=== PATIENT | female | born 1950 | race Caucasian/White ===

== ENCOUNTER → 2017-11-25 10:27 | Outpatient (CLI) | payer MEDICARE, SELFPAY ==
[2017-11-25 12:40] LABS: AST(SGOT) 19 U/L (15-37); Alanine Aminotransfer ALT/SGPT 25 U/L (13-56); Anion Gap 8 (5-15); BUN 14 mg/dL (7-18); BUN/Creat Ratio 20.9 RATIO (10-20); Chloride 107 mmol/L (98-107); Cholesterol 215 mg/dL (200); Creatinine, Serum 0.67 mg/dL (0.55-1.02); EST Glomerular Filtration Rate 93 mL/min (>60); Est Glom Filt Rate - Afr Amer 113 mL/min (>60); Glucose 76 mg/dL (74-106); High Density Lipoprotein 59 mg/dL; Potassium 3.3 mmol/L (3.5-5.1); Sodium Level 144 mmol/L (136-145); Thyroid Stim Hormone (TSH) 2.03 uIU/mL (0.358-3.74); Triglycerides 128 mg/dL; Very Low Density Lipoprotein 26 mg/dL (5-40)
== END ==
PROVIDERS: Family Provider Family Medicine; PCP Family Medicine; Visit Provider Family Medicine
DX: Z00.00 Encounter for general adult medical examination without abnormal findings (principal); E78.5 Hyperlipidemia, unspecified; M81.0 Age-related osteoporosis without current pathological fracture
CPT/HCPCS: 36415; 80048; 80061; 84443; 84450; 84460

== ENCOUNTER → 2018-01-29 08:37 | Outpatient (CLI) | payer MEDICARE, SELFPAY ==
--- NOTE | 2018-01-29 08:39 | BD_ITS ---
STUDY: DUAL ENERGY X-RAY ABSORPTIOMETRY / DXA REASON FOR EXAM: Female, 67 years old. The patient is postmenopausal. No loss of height. TECHNIQUE: Bone Mineral Density (BMD) measurements of lumbar spine and bilateral hips were obtained. COMPARISON: Comparison is made with prior study dated October 18, 2015. FINDINGS: Lumbar Spine (L1-L4): g/cm2 (0.864) / T-score (-2.6) / Z-score (-1.0) Findings are suggestive of osteoporosis with a high fracture risk. Left Femur Total: g/cm2 (0.812) / T-score (-1.6) / Z-score (-0.2) Left Femoral Neck: g/cm2 (0.724) / T-score (-2.3) / Z-score (-0.7) Right Femur Total: g/cm2 (0.726) / T-score (-2.2) / Z-score (-0.9) Right Femoral Neck: g/cm2 (0.690) / T-score (-2.5) / Z-score (-0.9) The T-Scores on the most recent prior examination were: Lumbar Spine (L1-L4): There has been no change of bone density since the previous examination. Left Femur Total: which represents an improvement of 3.7%. Right Femur Total: which represents a worsening of 0.7%. BD/Dexa Bone Density Study IMPRESSION: The patient is considered osteoporotic as outlined below according to World Tl Organization (WHO) criteria with a high fracture risk. There has been improvement of bone density since the previous examination. Reference Information: The T-score is the number of standard deviations above or below the standard which is normal for young adults at their peak bone mineral density. The World Health Organization (WHO) interprets the T-scores as follows: Above -1 Normal bone density Between -1 and -2.5 Osteopenia Equal to / or below -2.5 Osteoporosis As a practical clinical guideline, osteopenia may be graded as follows: Mild -1 through -1.5 Moderate -1.6 through -2.0 Severe -2.1 through -2.4 The Z-score is the number of standard deviations above or below age-matched controls. A Z-score of less than -1.5 would be considered abnormal. References: 1. NIH Osteoporosis and Related Bone Diseases http://www.osteo.org 2. International Society for Clinical Densitometry http://www.iscd.org 3. National Osteoporosis Foundation http://www.nof.org Electronically Signed: Rangel Carver MD at 13:06 EDT Tel [phone], Service support ,
--- NOTE | 2018-01-29 08:41 | BI_ITS ---
MAMMOGRAPHY - BILATERAL SCREENING REASON FOR EXAM: Female, 67 years old. Routine annual screening examination. PERTINENT HISTORY: Non-contributory. TECHNIQUE: Digital bilateral breast emelyn (3D mammographic acquisition) in the CC and MLO projections. 2-D mediolateral oblique (MLO) and craniocaudad (CC) views of both breasts were obtained. CAD: Full Field Digital Mammography with Computer Added Detection was performed. COMPARISON: Comparison is made with prior study dated December 14, 2016 and October 18, 2015. FINDINGS: Breast Composition: There are scattered areas of fibroglandular density. There are no dominant masses or suspicious calcifications. No other significant abnormalities are identified. There has been no significant change since the prior study. BI/SCREENING MAMM (CAD), BILAT IMPRESSION: Stable bilateral screening mammogram. Yearly follow-up mammogram recommended. (A) ASSESSMENT CATEGORY: BIRADS Category 1: Negative. A letter regarding these results will be sent to the patient by the facility within 30 days. Approximately 10% of breast cancers are not detected by mammography. A normal mammogram should not delay biopsy of a clinically suspicious abnormality. [id number] Electronically Signed: Rangel Carver MD at 9:54 EDT Tel [phone], Service support ,
== END ==
PROVIDERS: Family Provider Family Medicine; PCP Family Medicine; Visit Provider Family Medicine
DX: M81.0 Age-related osteoporosis without current pathological fracture (principal); Z12.31 Encounter for screening mammogram for malignant neoplasm of breast
CPT/HCPCS: 77063; 77067; 77080

== ENCOUNTER → 2020-07-04 08:36 | Outpatient (CLI) | payer MEDICARE, SELFPAY ==
[2020-07-04 10:03] LABS: Absolute Lymphocyte Count 1.87 X10^3/uL (0.83-4.51); Absolute Neutrophil Count 3.6 X10^3/uL (2.0-7.7); Basophil# 0.02 X10^3/uL; Basophil% 0.3 % (0-1); Eosinophil# 0.38 X10^3/uL; Hematocrit 42.8 % (37-47); Hemoglobin 14.2 g/dL (12.0-15.0); Lymphocyte # 1.87 X10^3/ul (4.0); Lymphocyte % 29.3 % (19-41); Mean Corp Hgb Conc 33.2 g/dL (32-36); Mean Corpuscular Hgb 31.1 pg (27.0-32.0); Mean Corpuscular Volume 93.7 fL (81-99); Monocyte# 0.45 X10^3/uL; Monocyte% 7.1 % (0-10); NRBC Flagged by Analyzer 0 % (0-5); Neutrophil # 3.64 X10^3/uL (2.7-7.7); Platelet Count 224 K/mm3 (150-450); RBC Distribution Width CV 12.9 % (11.6-14.6); RBC Distribution Width SD 44.2 fl (35.1-43.9); Red Blood Count 4.57 M/mm3 (4.2-5.4); White Blood Count 6.4 K/mm3 (4.4-11.0)
[2020-07-04 10:36] LABS: Anion Gap 5 (5-15); BUN 13 mg/dL (7-18); BUN/Creat Ratio 16.9 RATIO (10-20); Calcium,Total 8.6 mg/dL (8.5-10.1); Chloride 112 mmol/L (98-107); Cholesterol 201 mg/dL (200); Creatinine, Serum 0.77 mg/dL (0.55-1.02); EST Glomerular Filtration Rate 79 mL/min (>60); Est Glom Filt Rate - Afr Amer 96 mL/min (>60); Glucose 91 mg/dL (74-106); High Density Lipoprotein 55 mg/dL; Potassium 3.5 mmol/L (3.5-5.1); Sodium Level 144 mmol/L (136-145); Triglycerides 105 mg/dL; Very Low Density Lipoprotein 21 mg/dL (5-40)
== END ==
PROVIDERS: PCP Family Medicine; Referring Provider Family Medicine; Visit Provider Registered Nurse
DX: R20.0 Anesthesia of skin (principal); E78.5 Hyperlipidemia, unspecified; R20.2 Paresthesia of skin
CPT/HCPCS: 36415; 80048; 80061; 85025

== ENCOUNTER → 2020-07-14 13:19 | Outpatient (CLI) | payer MEDICARE, OTHER, SELFPAY ==
--- NOTE | 2020-07-14 13:29 | CT_ITS ---
STUDY: CT BRAIN WITHOUT CONTRAST REASON FOR EXAM: Female, 69 years old. LEFT SIDE NUMBNESS/TINGLING RADIATION DOSAGE (If Supplied By Facility): CTDIvol = ( 60.81 ) mGy, DLP = ( 1067.08 ) mGycm TECHNIQUE: Transaxial CT imaging of the brain was performed without administration of intravenous contrast material. Individualized dose optimization techniques were used for this CT. COMPARISON: No relevant priors. FINDINGS: Normal soft tissue structures. Normal calvarium. There is mild cerebral atrophy with widening of the extra-axial spaces and ventricular dilatation. Normal white matter tracts of the cerebral hemispheres. Normal basal ganglia and thalami. Normal brainstem. Normal cerebellum. There is no intracranial hemorrhage. There are no findings of an acute ischemic infarction. Normal visualized paranasal sinuses. CT/Brain/Head without Contrast IMPRESSION: Chronic involutional changes of the brain. Electronically Signed: Rangel Carver, at 14:19 EDT , Service support ,
== END ==
PROVIDERS: PCP Family Medicine; Referring Provider Registered Nurse; Visit Provider Registered Nurse
DX: R20.0 Anesthesia of skin (principal); R20.2 Paresthesia of skin
CPT/HCPCS: 70450

== ENCOUNTER → 2020-07-26 16:06 | Outpatient (CLI) | payer MEDICARE, OTHER, SELFPAY ==
--- NOTE | 2020-07-26 16:45 | MRI_ITS ---
STUDY: MRI BRAIN WITH AND WITHOUT CONTRAST REASON FOR EXAM: Female, 69 years old. numbness and tingling TECHNIQUE: Standardized multiplanar fat and water weighted pulse sequences were obtained. IV Yes YES was administered for the contrast portion of the examination. COMPARISON: CT of the brain 07/14/2020 FINDINGS: Mild atrophy and moderate periventricular white matter ischemic changes without mass effect or restricted diffusion.. Normal bilateral basal ganglia. Normal thalami. There is no extra-axial fluid accumulation. Normal flow voids within the major intracranial circulation suggesting patency by spin echo criteria. Normal venous enhancement. There is no enhancing intra-axial or extra-axial abnormality. Normal sella turcica, pituitary gland, infundibular stalk, optic chiasm and hypothalamus. Normal tectal plate and pineal gland. Normal midbrain, sunshine and medulla. Normal cerebellum. Normal basal cisterns. Normal bilateral temporal bones. Normal bilateral internal auditory canals. There are postsurgical changes of the orbits.. Normal visualized paranasal sinuses. Normal calvarium and skull base. Normal visualized soft tissue structures. Normal visualized upper cervical spine. MRI/Brain W/WO Contrast IMPRESSION: Moderate periventricular white matter ischemic changes without evidence for acute infarct.. No enhancing lesions following contrast administration Electronically Signed: Jareth Parrish MD at 17:23 EDT , Service support ,
== END ==
PROVIDERS: PCP Family Medicine; Referring Provider Nurse Practitioner Family; Visit Provider Nurse Practitioner Family
DX: R20.0 Anesthesia of skin (principal); R20.2 Paresthesia of skin
CPT/HCPCS: 70553; A9575

== ENCOUNTER 2021-02-02 16:53 | Day surgery (SDC) | payer MEDICARE, OTHER, SELFPAY ==
[2021-02-02 16:54] VITALS: BP 170/100; PULSE 85; RESP 18; TEMP 36.1; O2SAT 100; BMI 23.4
[2021-02-02] MEDS: Morphine 4 MG/ML Syringe IV ×2 (17:26→19:20)
[2021-02-02 17:29] LABS: Absolute Lymphocyte Count 2.39 X10^3/uL (0.83-4.51); Absolute Neutrophil Count 3.3 X10^3/uL (2.0-7.7); Basophil# 0.02 X10^3/uL; Basophil% 0.3 % (0-1); Eosinophil# 0.23 X10^3/uL; Eosinophils% 3.6 % (0-5); Hematocrit 43.5 % (37-47); Hemoglobin 14.2 g/dL (12.0-15.0); Lymphocyte # 2.39 X10^3/ul (0.83-4.51); Lymphocyte % 37.5 % (19-41); Mean Corp Hgb Conc 32.6 g/dL (32-36); Mean Corpuscular Hgb 30.2 pg (27.0-32.0); Mean Corpuscular Volume 92.6 fL (81-99); Mean Platelet Vol. 10.9 fl (6.2-12.0); Monocyte# 0.44 X10^3/uL; Monocyte% 6.9 % (0-10); NRBC Flagged by Analyzer 0 % (0-5); Neutrophil # 3.28 X10^3/uL (2.7-7.7); Neutrophil % 51.5 % (47-70); Platelet Count 241 K/mm3 (150-450); RBC Distribution Width SD 44.1 fl (35.1-43.9); White Blood Count 6.4 K/mm3 (4.4-11.0)
[2021-02-02] MEDS: Diphth,Pertuss(Acell),Tet Vac 0.5 ML Vial IM (17:29)
--- NOTE | 2021-02-02 17:31 | RAD_ITS ---
STUDY: X-RAY - LEFT WRIST REASON FOR EXAM: Female, 70 years old. Injury/Pain TECHNIQUE: 3 view(s) of the wrist were obtained. COMPARISON: None. FINDINGS: An acute comminuted impacted fracture of the distal radial metaphysis is present with displacement and foreshortening. An acute fracture at the base of the ulnar styloid is also present. The soft tissues are mildly swollen. A laceration is seen at the periphery of the ulnar styloid. Normal radiocarpal articulation. Normal distal radioulnar articulation. Normal carpal bones. Normal carpal articulations. Normal carpometacarpal articulation of the thumb. Normal second through fifth carpometacarpal articulations. Normal visualized metacarpal bones. RAD/Wrist min 3 Views IMPRESSION: 1. An acute comminuted impacted fracture of the distal radial metaphysis is present with displacement and foreshortening. 2. An acute fracture at the base of the ulnar styloid is also present. The soft tissues are mildly swollen. A laceration is seen at the periphery of the ulnar styloid. Electronically Signed: Selwyn Lara MD at 18:44 EDT , Service support ,
[2021-02-02 17:40] LABS: Prothrombin Time (Protime)PT. 12.8 SECONDS (11.7-14.9)
[2021-02-02 17:41] LABS: Partial Thromboplast Time 24.1 Seconds (24.1-36.2)
[2021-02-02 17:50] LABS: AST(SGOT) 18 U/L (15-37); Alanine Aminotransfer ALT/SGPT 24 U/L (13-56); Albumin, Serum 3.7 g/dL (3.2-5.0); Alkaline Phosphatase 114 U/L (45-117); Anion Gap 5 (5-15); BUN 15 mg/dL (7-18); Calcium,Total 8.9 mg/dL (8.5-10.1); Chloride 108 mmol/L (98-107); Creatinine, Serum 0.88 mg/dL (0.55-1.02); EST Glomerular Filtration Rate 67 mL/min (>60); Est Glom Filt Rate - Afr Amer 81 mL/min (>60); Estimated Creatinine Clearance 57.85 ml/min; Globulin 3.8 g/dL (2.2-4.2); Glucose 106 mg/dL (74-106); Potassium 3.2 mmol/L (3.5-5.1); Protein, Total 7.5 g/dL (6.4-8.2); Sodium Level 142 mmol/L (136-145)
[2021-02-02] MEDS: Cefazolin 1 GM/50 ML BAG IV (18:04)
[2021-02-02 20:14] VITALS: BP 164/81; PULSE 72; RESP 16; O2SAT 98
[2021-02-02 20:15] VITALS: BP 169/71; PULSE 72; RESP 16; TEMP 36.7; O2SAT 98; BMI 23.4
[2021-02-02 20:20] VITALS: BP 164/71; PULSE 72; RESP 16; TEMP 36.7; O2SAT 98
--- NOTE | 2021-02-02 21:01 | PCM.HP.STD ---
History of Present Illness Date of Admission: 02/02/21 Chief Complaint: left wirst pain The patient is a 70 year old F [id number] female with a history of osteoporosis presents today with left wrist pain. She tripped on the sidewalk and fell on the concrete this afternoon sustained an injury to her wrist with a noted deformity. She presented to the emergency department. She was noted to have a small wound over the distal ulna dorsally. She denies any numbness and tingling. Pain is a 6 out of 10 worse with motion better with immobilization. Is a dull achy pain. She denies any associated numbness and tingling. She lives at home with her . She continues to maintain all of her ADLs. She plays the piano. Past Medical History Medical History: Medical History (Last Updated 02/02/21 @ 21:[address] Raúl Robertson MD) Hypercholesteremia E78.00 Osteoporosis M81.0 Allergies No Known Allergies Allergy (Verified 02/02/21 16:55) Home Medications: Ambulatory Orders Medication Instructions Recorded Ergocalciferol (Vitamin D2) 1 cap PO DAILY 02/02/21 [Vitamin D2] Pravastatin Sodium 40 mg PO DAILY 02/02/21 Surgical History: - - Denies adverse events with anesthesia Psychiatric History: No pertinent psych hx COMMUNITY CENTER DIRECTOR History: No pertinent COMMUNITY CENTER DIRECTOR history Lives: Spouse/ Significant Other Smoking Status: Never smoker Tobacco Use: Non-smoker Alcohol: None Drugs: None Review of Systems Constitutional: Denies: Chills, Fever, Weight Change HEENT: Denies: Head Aches, Sinus Congestion, Sinus Drainage Cardiovascular: Denies: Chest Pain, Palpitations Respiratory: Denies: Cough, Shortness of breath at rest, Sputum production Gastrointestinal: Denies: Abdominal Pain, Nausea, Vomiting Genitourinary: Denies: Dysuria Musculoskeletal: Reports: Joint Pain, Joint Tenderness Skin: Reports: Wounds - Left forearm. Denies: Rash Neurological: Denies: Numbness, Tingling, Focal weakness Psychiatric: Denies: Anxiety, Depression, Homicidal Ideations, Suicidal Ideations Hematologic/ Lymphatic: Denies: Easy Bruising, Easy Bleeding VTE Information - Inpt Only VTE Present on Admission: No VTE Mechan Device Prophylaxis: SCD's VTE Pharm Prophylaxis ordered?: No Reason prophylaxis not ordered:: Treatment Not Indicated Objective: X-rays of the left wrist reveal a comminuted intra-articular distal radius fracture with greater than 2 fragments. There appears to be a sagittal and coronal split distally. In addition there is a radial styloid fracture. - Physical Exam Vitals/I&O's: Vital Signs Temp Pulse Resp BP Pulse Ox 98.1 F 72 16 164/71 H 98 02/02/21 20:20 02/02/21 20:20 02/02/21 20:20 02/02/21 20:20 02/02/21 20:20 Oxygen Delivery Method Room Air Weight: 149 lb 14.629 oz Body Mass Index (BMI) 23.4 Intake and Output for Last 24 Hours 01/31/21 02/01/21 02/02/21 23:59 23:59 23:59 Intake Total 50 / 50 Balance 50 / 50 General: Alert, Oriented x3, Cooperative HEENT: Atraumatic, PERRLA Oral: Moist Mucosa Neck: No JVD Lungs: - - Nonlabored breathing Cardiovascular: - - Regular pulse rate Abdomen: Non-Distended Extremities: - - Left upper extremity: Patient has ecchymosis and gross deformity of the wrist. There is a small puncture hole roughly 3 mm in diameter over the dorsal distal ulna. Skin is otherwise intact. Tenderness palpation in this area. Positive thumbs up, okay sign and cross his fingers. SILT R/M/U. 2+ rp Laboratory Results 02/02/21 17:20: WBC 6.4, RBC 4.70, Hgb 14.2, Hct 43.5, MCV 92.6, MCH 30.2, MCHC 32.6, RDW Std Deviation 44.1 H, RDW Coeff of Kian 13.0, Plt Count 241, MPV 10.9, Immature Gran % (Auto) 0.200, Neut % (Auto) 51.5, Lymph % (Auto) 37.5, Slope % (Auto) 6.9, Eos % (Auto) 3.6, Baso % (Auto) 0.3, Absolute Neuts (auto) 3.3, Absolute Lymphs (auto) 2.39, Nucleated RBC % 0 02/02/21 17:20: Sodium 142, Potassium 3.2 L, Chloride 108 H, Carbon Dioxide 29.0, Anion Gap 5, BUN 15, Creatinine 0.88, Estim Creat Clear Calc 57.85, Est GFR (MDRD) Af Amer 81, Est GFR (MDRD) Non-Af 67, BUN/Creatinine Ratio 17.0, Glucose 106, Calcium 8.9, Total Bilirubin 0.20, AST 18, ALT 24, Alkaline Phosphatase 114, Total Protein 7.5, Albumin 3.7, Globulin 3.8, Albumin/Globulin Ratio 1.0 02/02/21 17:20: PT 12.8, INR 1.0, APTT 24.1 Assessment/Plan Grade 1 left open distal radius fracture with associated ulnar styloid fracture. Natural history of the disease process and treatment options were discussed the patient. At this time I explained to the patient and due to the open nature of the fracture her overall health and activity level I would recommend irrigation debridement of the wound for treatment of the open fracture with stabilization of the fracture. Plan is for open reduction internal fixation with plate and screw fixation. This was described to the patient in detail. As well as recovery. Risk and benefits of the procedure were discussed the patient including but not limited to blood loss, DVTs, PEs, nervous damage, infection, the risk of anesthesia. The emergency department is given her Ancef upon presentation. We will redose her Ancef prior to surgery. Her tetanus is reported as up-to-date. We will keep the patient n.p.o., She did get 2 glasses of water in the emergency department. Considering the open nature of the fracture we have elected to proceed an emergent manner with the surgery this evening. [facility] Office:
[2021-02-02] MEDS: Ondansetron 4 MG/2 ML Vial IV (21:39)
--- NOTE | 2021-02-02 21:43 | EKG12_ITS ---
Test Reason : PRE-OP Blood Pressure : / mmHG Vent. Rate : 073 BPM Atrial Rate : 073 BPM P-R Int : 156 ms QRS Dur : 100 ms QT Int : 422 ms P-R-T Axes : 041 019 066 degrees QTc Int : 464 ms Sinus rhythm with occasional Premature ventricular complexes Nonspecific ST abnormality Abnormal ECG Confirmed by FERDINAND MARTINEZ, ANASTASIA ([id number]), subeditor YUNIEL NOONAN ([id number]) on 02/06/2021 9:03:13 AM Referred By: DR KATZ Confirmed By:ANASTASIA STREETER MD
[2021-02-02] MEDS: Cefazolin 2 GM in 0.9% Normal Saline 100 ML IV (22:25)
--- NOTE | 2021-02-02 22:30 | RAD_ITS ---
STUDY: X-RAY - LEFT WRIST REASON FOR EXAM: ORIF distal radial fracture. TECHNIQUE: 7 intraoperative images of the wrist were obtained. COMPARISON: Radiographs 02/02/2021. FINDINGS: There is an orthopedic plate and screws transfixing a distal radial fracture in anatomical alignment and position. 52.9 seconds of fluoroscopy time was used. Electronically Signed: Rudy Dickens MD at 14:20 EDT Tel , Service support , RAD/Wrist 2 Views
[2021-02-02] MEDS: Lactated Ringers 1,000 ML 125 ML IV (23:00)
--- NOTE | 2021-02-02 23:45 | DCINST_ITS ---
Discharge Diet: No Restrictions Discharge Activity: May Not Drive May shower in (days): 1 - keep splint dry May resume sexual activity in: No Restrictions Ice area for (Minutes): 20 - Ice area for 20 minutes each hour while awake Weight Bearing Status: Weight bearing as tolerated Keep extremity elevated above heart level: Operative Extremity Call your doctor if your incision/area has: Continuous Slow Oozing, Sudden Increased Bleeding, Increased Pain/ Swelling, Increased Redness, Foul Smelling Discharge Call your doctor if you observe: Fever of 101 or Higher, Coldness, Increased Pain, Numbness or Tingling, Change in Color Remove Dressing in (days):: 14 - Will be done in office Cleanse incision/area with: Keep Dressing Clean & Dry Allergies/Adverse Reactions: Allergies No Known Allergies Allergy (Verified 02/02/21 16:55) Medications to take at Discharge Acetaminophen [Tylenol] 1,000 mg PO Q8 tablet 02/02/21 Cephalexin [Keflex] 500 mg PO Q12 #14 capsule 02/02/21 Ergocalciferol (Vitamin D2) [Vitamin D2] 1 cap PO DAILY 02/02/21 Pravastatin Sodium 40 mg PO DAILY 02/02/21 traMADol [Ultram] 50 mg PO Q6H PRN PRN 5 Days #30 tablet 02/02/21 The following prescriptions were given: Cephalexin [Keflex] 500 mg PO Q12 #14 capsule traMADol [Ultram] 50 mg PO Q6H PRN PRN 5 Days #30 tablet PRN Reason: Pain Score 4-10 Primary Care Physician: Carmelita Anand MD [Primary Care Provider] - Test Results: Test results from this visit will be discussed in further detail at your follow- up appointment, if applicable. Please Follow Up With: Raúl Robertson MD - In 2 weeks When: Call for appointment Proposed Discharge Date: 02/02/21
--- NOTE | 2021-02-02 23:57 | PCM.OPRPT ---
Report of Operation Date of Procedure: 02/02/21 Pre-Operative Diagnosis: Left comminuted distal radius intra-articular fracture with greater than 2 fragments. Left ulnar styloid fracture open grade 1 Post-Operative Diagnosis: Left comminuted distal radius intra-articular fracture with greater than 2 fragments. Left ulnar styloid fracture open grade 1 Surgery/Procedure Performed:: Irrigation debridement with open reduction internal fixation left ulnar styloid fracture. Open reduction internal fixation left comminuted intra-articular distal radius fracture with greater than 2 fragments Description of Surgical Findings:: Stable reduction. Bone graft was required secondary to limited bone stock news library director: Jessica Muller Type of Anesthesia:: General/Regional Anesthesiologist: Rashard Anne Special Medications: 2 g Ancef Estimated Blood Loss (mL): 5 Fluids Replaced: 1500 mL crystalloid Description of Procedure: On the date of the procedure patient was examined in the emergency department. She was marked and consented for surgery as noted in her H&P. She was brought down to the operating room where she was taken back to the operating suite and transferred to the table in the supine position. Anesthesia assumed control of the C-spine airway. They remained controlled throughout the remainder of the procedure. Anesthesia was administered. All bony prominences were identified well-padded. Tourniquet was placed on left upper arm. Left upper extremity was then prepped in a sterile fashion while surgeon scrubbed. Upon reentering the room the left upper extremity was draped in a sterile fashion. Timeout was called over and agreed upon the side, site, treated performed, patient's identity and antibiotics given. At this point the incision was marked out to ellipse the open area over the distal ulna. In a standard volar approach incision was marked out over the volar wrist. Esmarch bandage was used to exsanguinate the extremity and tourniquet was placed up to 250 mmHg. Attention was initially directed towards the open wound where we ellipsed out the small opening and the damage surrounding skin. We debrided skin subtenons tissue fat and fascia. Once we are down to the fracture site it was clear that it was more of an inside out injury. Minimal gross debris was appreciated. The fracture site was copiously aired out normal saline and all debris was removed. We used over 1 L of normal saline. Once this was done we then directed our attention to fixation of the ulnar styloid. A 2-0 Ethibond suture was selected. We drilled a small hole in the styloid and a small hole in the shaft and made a tension band type fixation. We were able to visualize good fixation and reduction of the fracture. Live x-ray was used to verify fracture reduction. Once were happy with this was tied down in a tight knot and remained stable. The wound was copiously irrigated out with normal saline and skin was closed with 2-0 Vicryl and final skin closure was done with 3-0 nylon. Once this was done attention was directed towards the volar wrist Incision was made through skin we dissected sharply through superficial fascia then through the deep fascia retracting the FCR ulnarly. Once this was done FPL was also retracted ulnarly and the pronator quadratus was released from the radial aspect of the radius. We were able to identify the fracture. Patient had poor quality bone. We did open up bone graft. The fracture was reduced using traction and reduction maneuver. A K wire was then placed once we are happy with the fracture reduction to help hold it in place. Live x-ray was used to verify fracture reduction. It was clear that there was comminution and poor bone quality and the radial styloid. Bone graft was packed in this area. Once this was done we placed the plate provisionally with a K wire distally and in the slotted hole we placed the screw proximally. We tightened the plate down live x-rays used to verify plate placement and fracture reduction. Once we are happy with this we then used a leg screw distally to help bring the dorsal bone fragment into better reduction. We reduced the fracture and tightened down the leg screw. Once this was done we again verified fracture reduction. Once we are happy with this, has not dissipated the leg screw was long. We left the stent as we placed lockers in the remaining of the distal screws as well as the proximal screws. Once all the lockers were placed the leg screw was removed and replaced with a locking screw. The posterior fracture fragment remained stable. Final x-rays were taken showing stable reduction plate placement. Wounds Klebsiella normal saline. Skin closure was done with 2-0 Vicryl and 3-0 nylon. Xeroform dressing was placed. Compressive dose was placed. Tourniquet was let down. Volar splint was placed. Patient was awakened by anesthesia and transferred the PACU for recovery. Postop plan: Patient will be discharged home from the PACU. I have written for 1 week of Keflex to be taken due to the open fracture. Patient is nonweightbearing for a total of 6 weeks. We should be able to remove the splint in 2 weeks and begin range of motion exercises. Grafts/Implants Used: Synthes 3-hole narrow distal radius locking plate - Complications No intraoperative complications - Admit VTE Documentation VTE Present on Admission: No VTE Mechan Device Prophylaxis: SCD's VTE Pharm Prophylaxis ordered?: No Reason prophylaxis not ordered:: Treatment Not Indicated
[2021-02-03 00:02] VITALS: BP 103/55; BP 164/71; PULSE 84; RESP 16; TEMP 35.8; O2SAT 95
[2021-02-03 00:15] VITALS: BP 164/71; BP 94/64; PULSE 80; RESP 16; O2SAT 94
[2021-02-03 00:30] VITALS: BP 123/84; BP 164/71; PULSE 80; RESP 16; O2SAT 97
--- NOTE | 2021-02-03 00:37 | ED.VISSUMM ---
- ER Visit Summary Date of Service: 02/03/21 Chief Complaint: Left wrist injury History of Present Illness: The patient is a 70 F who presents with left wrist injury that occurred today. Patient states she was walking on the sidewalk when she tripped and fell. Patient states she fell forward on her outstretched left wrist. Patient describes her pain as throbbing. Patient states the pain is worse with any movement. Patient denies any head injury or loss of consciousness. Patient states she also thinks she scraped her left knee but he has had no pain in her knee. Patient denies any other injuries. Physical Examination: Vital signs are stable except for elevated blood pressure of 170/100. Patient is afebrile. Patient is in no acute distress. Oral mucosa is pink and moist. Neck is supple. Trachea is midline. There is no JVD. Musculoskeletal exam reveals tenderness over the left wrist. There is edema and ecchymosis. There is deformity noted. There is also an open puncture wound on the ulnar aspect of the left wrist. There is mild bleeding. Range of motion was limited in all motions of the left wrist secondary to pain. Sensation was intact to light touch in the radial, median, and ulnar areas. Strength is 5/5 in the radial, median, and ulnar areas. There is a strong radial pulse noted. Test Results: X-rays of the left wrist were obtained. There are 3 views. On my interpretation, there is a comminuted distal radius fracture extending into the radiocarpal joint and radial ulnar joint. There is shortening and impaction of the distal fragment. There is also an ulnar styloid fracture. Radiologist also interpreted the x-rays and agrees. CBC and comprehensive metabolic profile were obtained and were essentially within normal limits. Emergency Department Course and Treatment: Patient was given a tetanus booster and Ancef. Patient was given morphine and Zofran. Patient was given a repeat dose of morphine. Case was discussed with Dr. Robertson from orthopedics. He was in to evaluate the patient. He will admit the patient and take the patient to the operating room tonight. Patient understood and was agreeable with the plan. All questions were answered. Disposition: Admit to operating room Impression: Open fracture left distal radius and ulna This note was generated with [employer] dictation software. It may contain incorrect words, spelling, and punctuation that were not noted in review of the chart prior to signing ED Disposition - Plan for ED Patient: Disposition: Acute Care [facility] Diagnosis: Open fracture of left distal radius and ulna
[2021-02-03 00:45] VITALS: BP 123/87; BP 164/71; PULSE 84; RESP 16; TEMP 36.2; O2SAT 100
== END 2021-02-03 01:22 | disposition home or self-care (01) ==
LOC: ED 18:29 → SDC 20:14 → AC 20:15
PROVIDERS: Emergency Provider Emergency Medicine; PCP Family Medicine; Visit Provider Specialist
PROC: (CPT 25609; principal; 2021-02-02 20:00)
DX: S52.572A Other intraarticular fracture of lower end of left radius, initial encounter for closed fracture (principal); S52.612B Displaced fracture of left ulna styloid process, initial encounter for open fracture type I or II; W01.0XXA Fall on same level from slipping, tripping and stumbling without subsequent striking against object, initial encounter; Y93.01 Activity, walking, marching and hiking; Y92.480 Sidewalk as the place of occurrence of the external cause; Z23 Encounter for immunization; M81.0 Age-related osteoporosis without current pathological fracture; E78.00 Pure hypercholesterolemia, unspecified; Z79.899 Other long term (current) drug therapy
CPT/HCPCS: 25609; 25652; 64450; 73100; 73110; 76000; 80053; 85025; 85610; 85730; 90715; 93005; 99284; C1713; J7050; J7120; A4216; J2405

== ENCOUNTER 2021-04-27 08:00 | Outpatient (RCR) | payer MEDICARE, SELFPAY ==
--- NOTE | 2021-03-27 16:07 | HP.OTEVAL_ITS ---
Patient's Visit Information NAYELI MCMILLAN is a 70 year old F, referred to Occupational Therapy by Dr. Raúl Robertson MD, with a diagnosis of intra artic fx of left radius. Date of Evaluation: 03/27/21 Occupational Therapist: Flakita Montalvo, OTR/Alber, CHT - Subjective This 70 year old female was seen for OT eval with dx of left wrist intraartic fx of radiaus. pt states she walked out of [employer] and had a LOB and fell. went to [facility]. and pt had ORIF. same day. pt states she has limited ROM and can not make a fist- pt states limited with ADLS and IADLs with activities that require two hands or marketing project lead about objects. pt states she does a lot of computer work and has difficulty with bagley board and playing piano. - ADLs Dressing: Pants, Shoes Kitchen: Peel fruits & vegetables, Open jars, Ziplock bags Miscellaneous: Handle money (change), Hold change, Use computer keyboard, Play musical instrument, Function in drive through window - Pain left wrist 0 Pain Intensity Range: 0, 2 - ROM Forearm: right sup 90 left 60 right pron 90 left 45 Wrist: right 70/ 60 left 35/20 ROM Comments: pt demo right MCP flex at 90 full composite fist. 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 Pt will demo an increase in left lateral and tripod pinch by 4# to increase pts independent with opening baggies, containers at PLOF by D/C. Goal:: Pt will demo an increase in left wrist ROM to 65/65 return pt to PLOF with grooming, dressing and home mtg tasks by D/C. Pt will demo an increase in forearm supination by 60* or greater to increase pts ind. With ADls and IADLS by d/c. pt will demo full left composite fist to hold small objects ind. by d/c Goal:: Pt will report pain no greater than 1/10 with use of affected hand with BADLs and IADLs by d/c. Goal:: Pt will demo understanding of scar mtg. by end of 2nd session to increase tissue extensibility to limit scar adhesions and allow full tendons function by d/c. Pt will demo a decrease is scar sensitivity to tolerate wearing long sleeve shirts by D/c. Goal:: pt will report a reduction in finger tip sensitivity by 50% or more by d/c - Rehabilitation General Assessment: Pt arrives 7 weeks 4 days s/p ORIF of left radius. pt demo with limited wrist and forearm ROM and weakness- this limits pts ind. with ADs and IADls. Pt would benefit from skilled OT services 1-2x week for 6 weeks to return pt to PLOF. Today therapist ed. pt on AROM, PROM exercises and scar mtg. therapy will progress pt to strengthening as pt bharat. pt demo understanding and agrees to POC. Rehabilitation Potential: Good - Anticipated Interventions A/AAROM/PROM, Strengthening, Scar Care, Triggerpoint Release, Modalities, Orthoses, Joint Protection/Energy Conservation, Education re assistive Equipment, Education re Diagnosis - Visit Plan Frequency: 1-2x /Week Duration: 4 Weeks TEXT: Thank you for the opportunity to evaluate your patient. For Medicare and Medicare HMO plans, please review the plan of care and approve it. It will need to be FAXED BACK to us at [phone] for Medicare purposes. Please let me know if there are questions or concerns regarding this plan of care. Physician Signature: Date:
--- NOTE | 2021-05-19 07:48 | HP.OTDCSUM_ITS ---
It has been my pleasure to treat NAYELI MCMILLAN under orders from Dr. Raúl Robertson MD, for the diagnosis of intra artic fx of left radius for a total of 9 visit(s). Please see the following information for a summary of their discharge status. 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 left lateral pinch: 5#, right 10#. left 3-jaw aaron pinch: 4# right 11#. left sup/pron: WNL/ 80*. left ext/flex: 45*/65*. Pt didn't achieve all of her goals, and she is going back to the doctor at the end of April. Patient Goals: Regain Mobility, Regain Strength, Use Hand/Wrist/Arm Normally Again Goal:: PT will demo an increase in left harvest worker strength by 30# or greater to increase independent with basic occupations of daily living to return pt to PLOF by D/C. Pt will demo an increase in left lateral and tripod pinch by 4# to increase pts independent with opening baggies, containers at PLOF by D/C. Goal:: Pt will demo an increase in left wrist ROM to 65/65 return pt to PLOF with grooming, dressing and home mtg tasks by D/C. Pt will demo an increase in forearm supination by 60* or greater to increase pts ind. With ADls and IADLS by d/c. pt will demo full left composite fist to hold small objects ind. by d/c Goal:: Pt will report pain no greater than 1/10 with use of affected hand with BADLs and IADLs by d/c. Goal:: Pt will demo understanding of scar mtg. by end of 2nd session to increase tissue extensibility to limit scar adhesions and allow full tendons function by d/c. Pt will demo a decrease is scar sensitivity to tolerate wearing long sleeve shirts by D/c. Goal:: pt will report a reduction in finger tip sensitivity by 50% or more by d/c Plan: PT to cont. with HEP. Pt has met most OT goals and has reported return to her ADLS and IADls with no significant limitations. Discharge Comments: YES. pt has met OT goals and was to cont. with HEP to cont. to increase her strength. If there are questions or concerns regarding this patient's occupational therapy, please fell free to call me at [phone]. Thank you for the referral of this patient. Sincerely, Flakita Montalvo OTR/L, CHT
== END 2021-04-27 19:00 | disposition home or self-care (01) ==
LOC: OT 08:00
PROVIDERS: PCP Family Medicine; Referring Provider Specialist; Visit Provider Specialist
DX: S52.572D Other intraarticular fracture of lower end of left radius, subsequent encounter for closed fracture with routine healing (principal)
CPT/HCPCS: 97110; 97140; 97166

== ENCOUNTER 2021-07-18 07:30 | Outpatient (RCR) | payer MEDICARE, SELFPAY ==
--- NOTE | 2021-06-19 09:34 | HP.OTEVAL_ITS ---
Patient's Visit Information NAYELI MCMILLAN is a 70 year old F, referred to Occupational Therapy by Dr. Raúl Robertson MD, with a diagnosis of intrartic fx low end radius and displaced ulna styloid fx. Date of Evaluation: 06/19/21 Occupational Therapist: Flakita Montalvo, CLEMENTINE/Alber, CHT - Subjective This 70 year old female was seen for OT eval with dx of left intratic fx low end radius , ulna styloid fx- pt was seen following her injury and was d.c with HEP. pt did admit she was only doing her t-putty exercises every now and than- about 1 x a week. pt admits she just doesn't think about it. pt states she has most difficulty with pushing up from the floor after her floor exercises. 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 with ADls and IADLs by dc. pt will demo a increase in left lateral/ and tripod pinch by 3# to increase pts ind.with ADLs and IADls by d/c Goal:: pt will demo a increase in left wrist TAROM by 20* to increase pts ind. with ADLs by d/c Goal:: pt will report no pain greater than 2/10 with use of left UE with ADls and IADLs by d/c Goal:: pt will demo understanding of HEP and need to perform on daily vs weekly sessions by end of 2md visit. - Rehabilitation General Assessment: Pt demo with a decrease in left wrist ROM and weakness with use of left UE as pushing up from floor- pt would benefit from OT services 2xweek for 4 weeks to continue a PRE to increase pts ind. with ADls and IADLS. Today therapist advised pt to perform her calibration engineer and pinch strength exercises 5-6x a day for 3-5 steve. pt demo understanding and agree to set timer to perform exercises. Therapy will initiate gym eq. to increase functional strength and progress pt as bharat. pt agree to POC> Rehabilitation Potential: Good - Anticipated Interventions A/AAROM/PROM, Strengthening, Ergonomic Education, Education re assistive Equipment, Education re Diagnosis, Home Program - Visit Plan Frequency: 2x /Week Duration: 4 Weeks General Plan: continue with BTE and initiate PRE on gym eq. to increase pts functional strength TEXT: Thank you for the opportunity to evaluate your patient. For Medicare and Medicare HMO plans, please review the plan of care and approve it. It will need to be FAXED BACK to us at [phone] for Medicare purposes. Please let me know if there are questions or concerns regarding this plan of care. Physician Signature: Date:
--- NOTE | 2021-07-18 08:06 | HP.OTDCSUM_ITS ---
It has been my pleasure to treat NAYELI MCMILLAN under orders from Dr. Raúl Robertson MD, for the diagnosis of intrartic fx low end radius and displaced ulna styloid fx for a total of 9 visit(s). Please see the following information for a summary of their discharge status. % Improvement: 80 Objective/Function: pt demo the ability to form a composite fist-. pt demo the ability to lift and carry left handed 25# to simulate water can carry-. pt demo the ability to lift 25# box with and with out handles IND. and with good lifting mechanics. pt demo with left paper cone machine tender strength fluctuate from 25-30#- pt states she is doing more- like trying to use her left arm more for watering her stevens and picking up boxes. pt states she has no problems with gardening, cooking, laundry, driving and working at [employer]. Patient Goals: Regain Strength, Use Hand/Wrist/Arm Normally Again Goal:: pt will demo a increase in left paper cone machine tender strength to 40# or greater to increase her ind. with ADls and IADLs by dc. pt will demo a increase in left lateral/ and tripod pinch by 3# to increase pts ind.with ADLs and IADls by d/c Goal:: pt will demo a increase in left wrist TAROM by 20* to increase pts ind. with ADLs by d/c Goal:: pt will report no pain greater than 2/10 with use of left UE with ADls and IADLs by d/c Goal:: pt will demo understanding of HEP and need to perform on daily vs weekly sessions by end of 2md visit. Plan: D/C with HEP. Rec'd pt to use t-putty 6-8x a day vs 1x a day. therapist rec'd joining a health and wellness program Discharge Comments: pt was seen for 9 OT visits for strengthening as pt felt her paper cone machine tender wasn't good. pt now feels more confident in using her left UE with ADLS. see pt objective- pt demo good ability with tasks given in therapy to increase pts strength. pt reports 80% improvement. therapy advised pt to cont. with HEP increase use of thera-putty to greater than 1x a day and to join a health and wellness program throughout the winter. pt agree with POC. If there are questions or concerns regarding this patient's occupational therapy, please fell free to call me at [phone]. Thank you for the referral of this patient. Sincerely, Flakita Montalvo OTR/L, CHT
== END 2021-07-18 15:29 | disposition home or self-care (01) ==
LOC: OT 07:30
PROVIDERS: PCP Family Medicine; Referring Provider Specialist; Visit Provider Specialist
DX: S52.572D Other intraarticular fracture of lower end of left radius, subsequent encounter for closed fracture with routine healing (principal); S52.612D Displaced fracture of left ulna styloid process, subsequent encounter for closed fracture with routine healing; X58.XXXD Exposure to other specified factors, subsequent encounter
CPT/HCPCS: 97110; 97165; 97166; 97530

== ENCOUNTER → 2022-02-09 | Outpatient (CLI) | payer MEDICARE, SELFPAY ==
[2022-02-09 17:52] LABS: Vitamin D,25 Hydroxy 82.3 ng/mL
[2022-02-09 17:54] LABS: AST(SGOT) 21 U/L (15-37); Alanine Aminotransfer ALT/SGPT 24 U/L (13-56); Cholesterol 193 mg/dL (200); High Density Lipoprotein 51 mg/dL; Triglycerides 169 mg/dL; Very Low Density Lipoprotein 34 mg/dL (5-40)
== END | disposition home or self-care (01) ==
LOC: MFPLAB 14:57
PROVIDERS: PCP Family Medicine; Referring Provider Family Medicine; Visit Provider Family Medicine
DX: M81.0 Age-related osteoporosis without current pathological fracture (principal); E78.5 Hyperlipidemia, unspecified
CPT/HCPCS: 36415; 80061; 82306; 84450; 84460

== ENCOUNTER → 2022-03-06 | Outpatient (CLI) | payer MEDICARE, SELFPAY ==
--- NOTE | 2022-03-06 10:37 | BI_ITS ---
MAMMOGRAPHY - BILATERAL SCREENING REASON FOR EXAM: Female, 71 years old. Routine annual screening examination. PERTINENT HISTORY: Non-contributory. TECHNIQUE: Digital bilateral breast magdi (3D mammographic acquisition) in the CC and MLO projections. 2-D mediolateral oblique (MLO) and craniocaudad (CC) views of both breasts were obtained. CAD: Full Field Digital Mammography with Computer Added Detection was performed. COMPARISON: Comparison is made with prior study 01/29/2018 and 12/14/2016. FINDINGS: Breast Composition: There are scattered areas of fibroglandular density. There is a 1 cm x 0.9 cm well-defined nodule in the slightly upper central portion of the right breast. Correlation with ultrasound is recommended. No other significant abnormalities are identified. BI/SCRN MAMM (CAD)W/MAGDI BILAT IMPRESSION: 1 cm x 0.9 cm well-defined nodule in the slightly upper central portion of the right breast. Correlation with ultrasound is recommended. ASSESSMENT CATEGORY: BIRADS Category 0: Incomplete. Need additional imaging evaluation. A letter regarding these results will be sent to the patient by the facility within 30 days. Approximately 10% of breast cancers are not detected by mammography. A normal mammogram should not delay biopsy of a clinically suspicious abnormality. [id number] Electronically Signed: Rangel Carver MD at 12:14 EDT ,
--- NOTE | 2022-03-06 10:37 | BD_ITS ---
STUDY: DUAL ENERGY X-RAY ABSORPTIOMETRY / DXA REASON FOR EXAM: Female, 71 years old. 733.00OsteoporosisBONE DENSITY REASON FOR EXAM TECHNIQUE: Bone Mineral Density (BMD) measurements of lumbar spine and bilateral hips were obtained. COMPARISON: Comparison is made with prior study dated 01/29/2018. FINDINGS: Lumbar Spine (L1-L4): g/cm2 (0.715) / T-score (-3.0) / Z-score (-0.8) Findings are suggestive of osteoporosis with a high fracture risk. Left Femur Total: g/cm2 (0.684) / T-score (-2.1) / Z-score (-0.5) Left Femoral Neck: g/cm2 (0.529) / T-score (-2.9) / Z-score (-1.0) Right Femur Total: g/cm2 (0.654) / T-score (-2.4) / Z-score (-0.8) Right Femoral Neck: g/cm2 (0.475) / T-score (-3.4) / Z-score (-1.5) The T-Scores on the most recent prior examination were: Lumbar Spine (L1-L4): There has been worsening of bone density since the previous examination. Left Femur Total: which represents a worsening of 9%. Right Femur Total: which represents a worsening of 2.1%. BD/Dexa Bone Density Study IMPRESSION: The patient is considered osteoporotic as outlined below according to World Tl Organization (WHO) criteria with a high fracture risk. There has been worsening of bone density since the previous examination. Reference Information: The T-score is the number of standard deviations above or below the standard which is normal for young adults at their peak bone mineral density. The World Health Organization (WHO) interprets the T-scores as follows: Above -1 Normal bone density Between -1 and -2.5 Osteopenia Equal to / or below -2.5 Osteoporosis As a practical clinical guideline, osteopenia may be graded as follows: Mild -1 through -1.5 Moderate -1.6 through -2.0 Severe -2.1 through -2.4 The Z-score is the number of standard deviations above or below age-matched controls. A Z-score of less than -1.5 would be considered abnormal. References: 1. NIH Osteoporosis and Related Bone Diseases www osteo.org 2. International Society for Clinical Densitometry www iscd.org 3. National Osteoporosis Foundation www nof.org Electronically Signed: Rangel Carver MD at 15:41 EDT ,
== END | disposition home or self-care (01) ==
LOC: OPBD 10:36
PROVIDERS: PCP Family Medicine; Visit Provider Family Medicine
DX: M81.0 Age-related osteoporosis without current pathological fracture (principal); Z12.31 Encounter for screening mammogram for malignant neoplasm of breast
CPT/HCPCS: 77063; 77067; 77080

== ENCOUNTER → 2022-03-08 | Outpatient (CLI) | payer MEDICARE, SELFPAY ==
--- NOTE | 2022-03-08 14:38 | US_ITS ---
STUDY: ULTRASOUND BREAST - RIGHT REASON FOR EXAM: Female, 71 years old. Abnormal mammogram. TECHNIQUE: Axial and longitudinal images of the RIGHT breast were performed with a high resolution ultrasound transducer. # OF IMAGES: 22 COMPARISON: Comparison is made with prior mammogram dated 03/06/2022. FINDINGS: RIGHT Breast: The mammographic abnormality corresponds to a 9 mm x 9 mm x 7 mm cyst at the 10 o''clock position breast at 4 cm from nipple. US/Breast Limited Unilateral IMPRESSION: The mammographic abnormality corresponds to a 9 mm x 9 mm x 7 mm cyst at the 10 o''clock position of the breast at 4 cm from the nipple. ASSESSMENT CATEGORY: BIRADS Category 2: Benign. A letter regarding these results will be sent to the patient by the facility within 30 days. Electronically Signed: Rangel Carver MD at 15:01 EDT ,
== END | disposition home or self-care (01) ==
PROVIDERS: PCP Family Medicine; Referring Provider Family Medicine; Visit Provider Family Medicine
DX: R92.8 Other abnormal and inconclusive findings on diagnostic imaging of breast (principal); N60.01 Solitary cyst of right breast
CPT/HCPCS: 76642

== ENCOUNTER 2023-02-20 14:21 | Outpatient (CLI) | payer MEDICARE, SELFPAY ==
[2023-02-20 18:10] LABS: AST(SGOT) 24 U/L (15-37); Alanine Aminotransfer ALT/SGPT 31 U/L (13-56); Cholesterol 180 mg/dL (200); High Density Lipoprotein 58 mg/dL; Triglycerides 226 mg/dL; Very Low Density Lipoprotein 45 mg/dL (5-40)
== END 2023-02-20 23:59 | disposition home or self-care (01) ==
LOC: MFPLAB 14:24
PROVIDERS: PCP Family Medicine; Visit Provider Family Medicine
DX: E78.5 Hyperlipidemia, unspecified (principal)
CPT/HCPCS: 36415; 80061; 84450; 84460

== ENCOUNTER → 2023-03-07 | Outpatient (CLI) | payer MEDICARE, SELFPAY ==
--- NOTE | 2023-03-07 08:02 | BI_ITS ---
MAMMOGRAPHY - BILATERAL SCREENING REASON FOR EXAM: Female, 72 years old. Routine annual screening examination. PERTINENT HISTORY: Non-contributory. TECHNIQUE: Digital bilateral breast magdi (3D mammographic acquisition) in the CC and MLO projections. 2-D mediolateral oblique (MLO) and craniocaudad (CC) views of both breasts were obtained. CAD: Full Field Digital Mammography with Computer Added Detection was performed. COMPARISON: Comparison is made with prior study March 06, 2022 and January 29, 2018. FINDINGS: Breast Composition: There are scattered areas of fibroglandular density. There is a 1.1 cm x 1.1 cm well-defined nodule in the slightly upper lateral aspect of the left breast. Prior sonogram demonstrated this to be a cyst. No other significant abnormalities are identified. There has been no significant change since the prior study. BI/SCRN MAMM (CAD)W/MAGDI BILAT IMPRESSION: Stable bilateral screening mammogram. Yearly follow-up mammogram recommended. (A) ASSESSMENT CATEGORY: BIRADS Category 2: Benign. A letter regarding these results will be sent to the patient by the facility within 30 days. Approximately 10% of breast cancers are not detected by mammography. A normal mammogram should not delay biopsy of a clinically suspicious abnormality. [id number] Electronically Signed: Rangel Carver MD at 9:00 EDT ,
== END | disposition home or self-care (01) ==
LOC: OPBI 08:00
PROVIDERS: PCP Family Medicine; Referring Provider Family Medicine; Visit Provider Family Medicine
DX: Z12.31 Encounter for screening mammogram for malignant neoplasm of breast (principal)
CPT/HCPCS: 77063; 77067

== ENCOUNTER → 2023-05-28 | Outpatient (CLI) | payer MEDICARE, SELFPAY ==
[2023-05-28 18:32] LABS: Vitamin D,25 Hydroxy 84.2 ng/mL
== END | disposition home or self-care (01) ==
LOC: MFPLAB 16:33
PROVIDERS: PCP Family Medicine; Visit Provider Family Medicine
DX: E55.9 Vitamin D deficiency, unspecified (principal); R25.2 Cramp and spasm
CPT/HCPCS: 36415; 82306

== ENCOUNTER → 2024-09-02 | Outpatient (CLI) | payer MEDICARE, SELFPAY ==
[2024-09-02 16:01] LABS: AST(SGOT) 21 U/L (15-37); Alanine Aminotransfer ALT/SGPT 23 U/L (13-56); Cholesterol 204 mg/dL (200); High Density Lipoprotein 59 mg/dL; Magnesium 2.3 mg/dL (1.6-2.6); Triglycerides 86 mg/dL; Very Low Density Lipoprotein 17 mg/dL (5-40)
== END | disposition home or self-care (01) ==
LOC: MFPLAB 12:14
PROVIDERS: PCP Family Medicine; Referring Provider Family Medicine; Visit Provider Family Medicine
DX: E78.5 Hyperlipidemia, unspecified (principal); R25.2 Cramp and spasm
CPT/HCPCS: 36415; 80061; 83735; 84443; 84450; 84460

== ENCOUNTER → 2024-10-01 | Outpatient (CLI) | payer MEDICARE, SELFPAY ==
--- NOTE | 2024-10-01 12:16 | BD_ITS ---
STUDY: DUAL ENERGY X-RAY ABSORPTIOMETRY / DXA REASON FOR EXAM: Female, 73 years old. [id number] TECHNIQUE: Bone Mineral Density (BMD) measurements of lumbar spine and bilateral hips were obtained. COMPARISON: Comparison is made with prior study dated March 06, 2022. FINDINGS: Lumbar Spine (L1-L4): g/cm2 (0.712) / T-score (-3.0) / Z-score (-0.7) Findings are suggestive of osteoporosis with a high fracture risk. Left Femur Total: g/cm2 (0.666) / T-score (-2.3) / Z-score (-0.5) Left Femoral Neck: g/cm2 (0.479) / T-score (-3.3) / Z-score (-1.3) Right Femur Total: g/cm2 (0.658) / T-score (-2.3) / Z-score (-0.6) Right Femoral Neck: g/cm2 (0.451) / T-score (-3.6) / Z-score (-1.6) The T-Scores on the most recent prior examination were: Lumbar Spine (L1-L4): There has been worsening of bone density since the previous examination. Left Femur Total: which represents a worsening of 2.6%. Right Femur Total: which represents an improvement of 0.7%. BD/Dexa Bone Density Study IMPRESSION: The patient is considered osteoporotic as outlined below according to World Tl Organization (WHO) criteria with a high fracture risk. There has been worsening of bone density since the previous examination. Reference Information: The T-score is the number of standard deviations above or below the standard which is normal for young adults at their peak bone mineral density. The World Health Organization (WHO) interprets the T-scores as follows: Above -1 Normal bone density Between -1 and -2.5 Osteopenia Equal to / or below -2.5 Osteoporosis As a practical clinical guideline, osteopenia may be graded as follows: Mild -1 through -1.5 Moderate -1.6 through -2.0 Severe -2.1 through -2.4 The Z-score is the number of standard deviations above or below age-matched controls. A Z-score of less than -1.5 would be considered abnormal. References: 1. NIH Osteoporosis and Related Bone Diseases www osteo.org 2. International Society for Clinical Densitometry www iscd.org 3. National Osteoporosis Foundation www nof.org Electronically Signed: Rangel Carver MD at 10:16 EST ,
--- NOTE | 2024-10-01 12:16 | BI_ITS ---
MAMMOGRAPHY - BILATERAL SCREENING REASON FOR EXAM: Female, 73 years old. Routine annual screening examination. PERTINENT HISTORY: Non-contributory. TECHNIQUE: Digital bilateral breast magdi (3D mammographic acquisition) in the CC and MLO projections. 2-D mediolateral oblique (MLO) and craniocaudad (CC) views of both breasts were obtained. CAD: Full Field Digital Mammography with Computer Added Detection was performed. COMPARISON: Comparison is made with prior study March 07, 2023 and March 06, 2022. FINDINGS: Breast Composition: The breasts are heterogeneously dense, which may obscure small masses. Slight decreased size in the previously seen nodule in the upper lateral aspect of the right breast presently measuring 9 mm 2 smaller nodules are also seen in the upper-outer quadrant of the right breast suggestive of cysts. Correlation with ultrasound is recommended. No other significant abnormalities are identified. BI/SCRN MAMM (CAD)W/MAGDI BILAT IMPRESSION: Small nodule seen in the right breast as described. Correlation with ultrasound recommended ASSESSMENT CATEGORY: BIRADS Category 0: Incomplete. Need additional imaging evaluation. A letter regarding these results will be sent to the patient by the facility within 30 days. Approximately 10% of breast cancers are not detected by mammography. A normal mammogram should not delay biopsy of a clinically suspicious abnormality. [id number] Electronically Signed: Rangel Carver MD at 13:23 EST ,
== END | disposition home or self-care (01) ==
LOC: OPBD 12:15
PROVIDERS: PCP Family Medicine; Referring Provider Family Medicine; Visit Provider Family Medicine
DX: Z12.31 Encounter for screening mammogram for malignant neoplasm of breast (principal); Z78.0 Asymptomatic menopausal state
CPT/HCPCS: 77063; 77067; 77080

== ENCOUNTER 2024-10-05 09:00 | Outpatient (RCR) | payer MEDICARE, SELFPAY ==
--- NOTE | 2024-09-07 08:51 | HP.PTEVAL_ITS ---
Patient's Visit Information Visit Information Visit Information: NAYELI MCMILLAN is a 73 year old F referred to Physical Therapy by Dr. Carmelita Anand MD with a diagnosis of Frequent falls. Date of Evaluation: 09/07/24 Physical Therapist: Rashard Brady, JEANT, OCS, CSCS Visit Plan Frequency: 2x /Week Duration: 4-6 Weeks Plan: 2x/week for 4 weeks to teach gym and hep including LE and postural machines in gym weigth shift exercises and deep lunges for functional strength and balance, work on floor trasnfer. Emphasis on I gym and balance program at departure Subjective Subjective: Balance is not good. Pt thinks it is age. Never works on balance. It is not good. she knows this b/c she feels off balance sometimes walking or standing. Core feels weak. Fell and broke wrist 3 yrs ago on uneven sidewalk tripping on it. No falls since then but had fallen previously. Activities are normal but does not sit on floor b./c getting up is tough. Lives with in one story with basement steps with railing but is careful and aware. Basic ADLs, all no problem. Can't raise legs as high as 20 yo. No regular exercises, doesn't like it. 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 Avoids heavy lifting. 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 Objective Objective: Sitting posture is forward head and IR femurs. Protracted scap. Sit to stand I with knees collapsing together. I Stands I with good balance eo and ec. Stand to sit I. floor transfer weak in lower positions and needs to push with UE. steps reciprocal hesitant without rail and weakness with IR at femur descending but able, better with one railing. Good LB ROM today without pain. LE AROM WFL and no pain, max tightness B HS L >R at -40 90/90 test L and -35 R. sensation LE WNL to gross light touch. reflexes 2/3 patella and achilles Strength hip abd and ext 3, flexion 3+ with contralateral instability. knee flex and ext 4-, ankles 4/5 B Balance/Special Test Scores Functional Gait Assessment Score: 26 % Disability: 13.3400 Lower Extremity Functional Score: 63 TUG Test Time Seconds: 13 30 Second Chair Rise Test Seconds: 18 Goals Goal 1:: I appropriate gym and HEP for balance, hip and LE and postural strength Goal Time Frame: 2-4 Weeks Goal 2:: Pt feel 50% improved in overall balance and mobility Goal Time Frame: 2-4 Weeks Goal 3:: Get up off floor without pushing with UE Goal Time Frame: 2-4 Weeks Rehabilitation Potential Physical Therapy Diagnosis: weakness and tightness contributing to feelings of imbalance. Rehabilitation Potential: Good Anticipated Interventions Patient/Client Instruction: Educate patient on: Condition and Plan of Care For the Purpose of:: To improve muscle performance and motor function and To increase tolerance to activity/condition/position Therapeutic Exercise to Include: Strength training, Balance training, Postural training and Flexibilty training For the Purpose of:: To improve muscle performance and motor function, To increase tolerance to activity/condition/position and To improve ability of physical actions for home/community/work/leisure Text: Thank you for the opportunity to evaluate your patient. For Medicare and Medicare HMO plans, please review the plan of care and approve it. It will need to be FAXED BACK to us at [phone] for Medicare purposes. For Medicare only, by signing this I certify the plan of care. Please let me know if there are questions or concerns regarding this plan of care. Physician Si gnature: Date:
--- NOTE | 2024-10-05 09:51 | HP.PTDCSUM_ITS ---
Discharge Summary D/C summary: It has been my pleasure to treat NAYELI MCMILLAN referred by Dr. Carmelita Anand MD, with the diagnosis of Frequent falls for a total of 8 visit(s). Discharge Date: 10/05/24 Please see the following information for a summary of their discharge status. Subjective Subjective: I think I am getting better. The exercises are getting easier. Confidence is up. No falls. no stumbles. Feels like her regular activities are normal. Got on floor to water [place]. Legs lifted her. No f/u with doctor. Overall Improvement % Improvement: 60 Objective Objective/Function: on and off floor with minimal to no UE help and good strength. FGA is good. Moving well . Goals Goal 1:: I appropriate gym and HEP for balance, hip and LE and postural strength Goal Progress: Goal Met Goal 2:: Pt feel 50% improved in overall balance and mobility Goal Progress: Goal Met Goal 3:: Get up off floor without pushing with UE Goal Progress: Goal Met Plan Plan: d/c D/C Information Discharge Comments: Will continue in gym and at home. d/c sentence: If there are questions or concerns regarding this patient's physical therapy, please feel free to call me at [phone]. Thank you for the referral of this patient. Sincerely, Rashard Brady, DPT, OCS, CSCS Balance/Gait/Functional tests Balance/Special Test Scores Functional Gait Assessment Score: 30 % Disability: 0 Lower Extremity Functional Score: 59 TUG Test Time Seconds: 13 Tug Test: <10 sec.=free mobile 30 Second Chair Rise Test Seconds: 18 Improvement % Improvement: 60
== END 2024-10-05 19:00 | disposition home or self-care (01) ==
LOC: PT 09:00
PROVIDERS: PCP Family Medicine; Referring Provider Family Medicine; Visit Provider Family Medicine
DX: R29.6 Repeated falls (principal); Z91.81 History of falling
CPT/HCPCS: 97110; 97161; 97530

== ENCOUNTER → 2024-10-06 | Outpatient (CLI) | payer MEDICARE, SELFPAY ==
--- NOTE | 2024-10-06 08:02 | US_ITS ---
STUDY: ULTRASOUND BREAST - RIGHT REASON FOR EXAM: Female, 73 years old. Abnormal screening mammogram. TECHNIQUE: Axial and longitudinal images of the RIGHT breast were performed with a high resolution ultrasound transducer. # OF IMAGES: 13 COMPARISON: Comparison is made with prior mammogram dated October 01, 2024 and the prior ultrasound of the right breast dated March 08, 2022. FINDINGS: RIGHT Breast: The upper outer quadrant of the right breast was examined. There is a 7 mm x 6 mm x 6 mm cyst at the 10:00 position of the breast at 6 cm from the nipple. There is an 8 mm x 10 mm x 5 mm cyst at the 9:00 position of the breast at 1 cm from the nipple. There is a 1.1 cm x 0.9 cm x 0.5 cm cyst at the 12:00 position of the breast at 2 cm from the nipple. US/Breast Limited Unilateral IMPRESSION: The mammographic abnormality corresponds to 3 small cysts. Routine mammographic follow-up recommended. ASSESSMENT CATEGORY: BIRADS Category 2: Benign. A letter regarding these results will be sent to the patient by the facility within 30 days. Electronically Signed: Rangel Carver MD at 15:13 EST ,
== END | disposition home or self-care (01) ==
PROVIDERS: PCP Family Medicine; Referring Provider Family Medicine; Visit Provider Family Medicine
DX: R92.8 Other abnormal and inconclusive findings on diagnostic imaging of breast (principal)
CPT/HCPCS: 76642

== ENCOUNTER → 2025-10-20 | Outpatient (CLI) | payer MEDICARE, SELFPAY ==
[2025-10-20 10:46] LABS: Ionized Calcium Order ORDER TUBE
[2025-10-20 12:07] LABS: PTHIN 63 pg/mL (11-61)
[2025-10-20 12:36] LABS: AST(SGOT) 21 U/L (<=31); Alanine Aminotransfer ALT/SGPT 16 U/L (<=34); Albumin, Serum 3.9 g/dL (3.4-4.8); Alkaline Phosphatase 130 U/L (35-104); Anion Gap 9 (7-18); BUN 14 mg/dL (4-19); BUN/Creat Ratio 19.7 RATIO (10-20); Calcium,Total 9.0 mg/dL (7.6-11.0); Carbon Dioxide 28.5 mmol/L (20.0-29.0); Chloride 106 mmol/L (96-106); Cholesterol 254 mg/dL (<=200); Globulin 3.0 g/dL (2.2-4.2); Glucose 88 mg/dL (70-99); Low Density Lipoprotein Calc. 186 mg/dL; Magnesium 2.4 mg/dL (1.5-2.2); Potassium 3.7 mmol/L (3.5-5.1); Triglycerides 136 mg/dL; Very Low Density Lipoprotein 27 mg/dL (5-40); Vitamin D,25 Hydroxy 30.8 ng/mL (30-100); cholesterol:hdl ratio screen 5.85
== END | disposition home or self-care (01) ==
LOC: MFPLAB 09:45
PROVIDERS: PCP Family Medicine; Visit Provider Family Medicine
DX: E78.5 Hyperlipidemia, unspecified (principal); M81.0 Age-related osteoporosis without current pathological fracture
CPT/HCPCS: 36415; 80053; 80061; 82306; 82330; 83735; 83970; 84443